=== PATIENT | male | born 1950 | race Caucasian/White ===

== ENCOUNTER 2017-10-13 10:48 | Inpatient (IN) | payer MEDICARE, OTHER ==
[~2017-10-13] VITALS: Ht 177.8 cm; Wt 91.1 kg
[2017-10-13 11:40] LABS: BASOPHILS % (AUTO) 0.3 % (0-1); EOSINOPHILS # (AUTO) 0.3 X10'3 (0-0.9); EOSINOPHILS % (AUTO) 3.4 % (0-6); HEMATOCRIT 33.5 % (42.0-52.0); HEMOGLOBIN 11.6 g/dl (14.0-17.9); LYMPHOCYTES # (AUTO) 1.6 X10'3 (1.1-4.8); LYMPHOCYTES % (AUTO) 19.2 % (21-51); MEAN CORPUSCULAR HEMOGLOBIN 29.5 PG (27.0-31.0); MEAN CORPUSCULAR HGB CONC 34.6 % (33.0-36.5); MEAN CORPUSCULAR VOLUME 85.2 FL (78-98); MEAN PLATELET VOLUME 6.8 FL (7.4-10.4); MONOCYTES % (AUTO) 11.5 % (2-12); NEUTROPHILS # (AUTO) 5.5 X10'3 (1.8-7.7); NEUTROPHILS % (AUTO) 65.6 % (42-75); PLATELET COUNT 299 X10'3 (140-440); RED BLOOD COUNT 3.94 X10'6 (4.70-6.10); RED CELL DISTRIBUTION WIDTH 14.6 % (11.5-14.5); WHITE BLOOD COUNT 8.4 X10'3 (4.5-11.0)
[2017-10-13 11:50] LABS: INR 1.1 INR; PARTIAL THROMBOPLASTIN TIME 31 SECONDS (22-32); PROTHROMBIN TIME 11.4 SECONDS (9.0-12.0)
[2017-10-13 12:01] LABS: ALANINE AMINOTRANSFERASE 27 U/L (12-78); ALBUMIN 3.2 G/DL (3.4-5.0); ALBUMIN/GLOBULIN RATIO 0.7 (1.1-1.5); ALKALINE PHOSPHATASE 70 IU/L (46-116); ANION GAP 11 (8-16); ASPARTATE AMINO TRANSFERASE 27 U/L (10-37); BILIRUBIN,TOTAL 0.4 MG/DL (0.1-1.0); BLOOD UREA NITROGEN 37 MG/DL (7-18); BUN/CREATININE RATIO 22.7 (5.4-32.0); CALCIUM 8.9 MG/DL (8.5-10.1); CHLORIDE 99 MMOL/L (99-107); CREATININE 1.63 MG/DL (0.60-1.10); GLUCOSE 117 MG/DL (70-104); POTASSIUM 4.4 MMOL/L (3.5-5.1); SODIUM 136 MMOL/L (135-145); TOTAL CARBON DIOXIDE 25.7 MMOL/L (24-32); TOTAL PROTEIN 8.1 G/DL (6.4-8.2); eGFR 43 ML/MIN
[2017-10-13] MEDS ORDERED: normal saline 1000ML IV soln IVB ONE (12:10)
[2017-10-13] MEDS ORDERED: iohexol 350MG/ML 100ml bottle IV ONE (13:26)
[2017-10-13] MEDS ORDERED: iohexol 350 MG/ML 50ML vial IV ONE (13:27)
[2017-10-13] MEDS ORDERED: acetaminophen 325mg tablet PO PRN (13:45)
[2017-10-13] MEDS ORDERED: mag hydrox/Alum hydrox/simeth 30ml oral suspension PO PRN (13:45)
[2017-10-13] MEDS ORDERED: magnesium 2GM in 50ml NS 50 ML IV PRN (13:45)
[2017-10-13] MEDS ORDERED: HYDROcodone/acetaminophen 5mg/325mg tablet PO PRN (13:45)
[2017-10-13] MEDS ORDERED: magnesium Cl slow-release 64mg tablet PO PRN (13:45)
[2017-10-13] MEDS ORDERED: potassium Cl 40MEQ/NS 500ml 500 ML IV PRN ×2 (13:45)
[2017-10-13] MEDS ORDERED: ondansetron/PF 4mg/2ml inj IV PRN (13:45)
[2017-10-13] MEDS ORDERED: magnesium 4gm in 100ml NS 100 ML IV PRN (13:45)
[2017-10-13] MEDS ORDERED: potassium Cl 20 mEq SR tablet PO PRN ×2 (13:45)
[2017-10-13] MEDS ORDERED: morphine 4 MG/ML inj SYRINge IV ONE ×2 (13:45→23:00)
[2017-10-13] MEDS ORDERED: magnesium hydroxide 30ml (MOM) UD suspension PO PRN (13:45)
[2017-10-13] MEDS: normal saline 1000ml 1,000 ML IV SCH (14:27)
[2017-10-13] MEDS ORDERED: SYN0.088T PO (14:33)
[2017-10-13] MEDS ORDERED: GABA-532 PO (14:43)
[2017-10-13] MEDS ORDERED: SIMV20TA5 PO (14:43)
[2017-10-13] MEDS ORDERED: LISI-644 PO (14:43)
[2017-10-13] MEDS ORDERED: METO25TA6 PO (14:43)
[2017-10-13] MEDS ORDERED: FURO-150 PO (14:43)
[2017-10-13] MEDS ORDERED: tramadol (14:43)
[2017-10-13] MEDS ORDERED: [UNRECOGNIZED DRUG - OTHER] (14:43)
[2017-10-13] MEDS ORDERED: HYDR-3965 PO (14:43)
[2017-10-13] MEDS ORDERED: TRAM100T34 PO (15:46)
[2017-10-13] MEDS ORDERED: METO5TAB7 PO (15:46)
[2017-10-13] MEDS ORDERED: MESSAGE TO PHARMACY PO ONE (16:15)
[2017-10-13] MEDS ORDERED: glucagon, human recombinant 1mg kit SUBCUT PRN (16:15)
[2017-10-13] MEDS ORDERED: dextrose ORAL solution 15 GM/59 ML bottle PO PRN ×2 (16:15)
[2017-10-13 16:32] LABS: HEMOGLOBIN A1C 8.2 % (4.5-6.2)
[2017-10-13] MEDS: dextrose 50%-water 50ml dispensing syringe IV PRN (18:01)
[2017-10-13] MEDS ORDERED: furosemide 10 MG/1 ML 10ml inj IV ONE (20:00)
[2017-10-13] MEDS: piperacillin/tazo 3.375gm/50ml 50 ML IV SCH (20:58)
[2017-10-13] MEDS: metoprolol tartrate 25mg tablet PO SCH (21:01)
[2017-10-13] MEDS: atorvastatin 20mg tablet PO SCH (21:02)
[2017-10-13] MEDS: insulin glargine (Lantus) pen - multi-dose SQ SCH (22:30)
[2017-10-13] MEDS ORDERED: morphine 4 MG/ML inj SYRINge IM ONE (22:30)
[2017-10-13] MEDS: gabapentin 300mg capsule PO SCH (22:38)
[2017-10-14] VITALS (22 sets, daily range): BP systolic 93–147; BP diastolic 53–73
[2017-10-14] MEDS: HYDROcodone/acetaminophen 5mg/325mg tablet PO PRN ×3 (01:39→12:55)
[2017-10-14] MEDS: piperacillin/tazo 3.375gm/50ml 50 ML IV SCH ×4 (02:43→22:58)
[2017-10-14] MEDS ORDERED: morphine 5 MG/ML injection IV PRN ×2 (03:00→05:15)
[2017-10-14] MEDS: morphine 4 MG/ML inj SYRINge IV PRN ×4 (05:37→23:56)
[2017-10-14 05:47] LABS: BASOPHILS % (AUTO) 0.3 % (0-1); EOSINOPHILS # (AUTO) 0.4 X10'3 (0-0.9); EOSINOPHILS % (AUTO) 5.1 % (0-6); HEMATOCRIT 38.1 % (42.0-52.0); LYMPHOCYTES # (AUTO) 1.9 X10'3 (1.1-4.8); LYMPHOCYTES % (AUTO) 22.4 % (21-51); MEAN CORPUSCULAR HEMOGLOBIN 29.4 PG (27.0-31.0); MEAN CORPUSCULAR HGB CONC 34.1 % (33.0-36.5); MEAN CORPUSCULAR VOLUME 86.1 FL (78-98); MEAN PLATELET VOLUME 7.1 FL (7.4-10.4); MONOCYTES # (AUTO) 0.9 X10'3 (0-0.9); MONOCYTES % (AUTO) 11.1 % (2-12); NEUTROPHILS # (AUTO) 5.1 X10'3 (1.8-7.7); NEUTROPHILS % (AUTO) 61.1 % (42-75); PLATELET COUNT 338 X10'3 (140-440); RED BLOOD COUNT 4.42 X10'6 (4.70-6.10); RED CELL DISTRIBUTION WIDTH 14.4 % (11.5-14.5); WHITE BLOOD COUNT 8.4 X10'3 (4.5-11.0)
[2017-10-14 06:12] LABS: ALANINE AMINOTRANSFERASE 27 U/L (12-78); ALBUMIN 3.3 G/DL (3.4-5.0); ALBUMIN/GLOBULIN RATIO 0.6 (1.1-1.5); ALKALINE PHOSPHATASE 64 IU/L (46-116); ANION GAP 14 (8-16); ASPARTATE AMINO TRANSFERASE 26 U/L (10-37); BILIRUBIN,TOTAL 0.5 MG/DL (0.1-1.0); BLOOD UREA NITROGEN 35 MG/DL (7-18); BUN/CREATININE RATIO 21.5 (5.4-32.0); CALCIUM 9.5 MG/DL (8.5-10.1); CHLORIDE 98 MMOL/L (99-107); CREATININE 1.63 MG/DL (0.60-1.10); GLUCOSE 101 MG/DL (70-104); MAGNESIUM 1.6 MG/DL (1.5-2.4); POTASSIUM 4.2 MMOL/L (3.5-5.1); SODIUM 136 MMOL/L (135-145); TOTAL CARBON DIOXIDE 23.9 MMOL/L (24-32); TOTAL PROTEIN 8.5 G/DL (6.4-8.2); eGFR 43 ML/MIN
[2017-10-14] MEDS: K and/or MAG REPLACEMENT MC SCH (08:00)
[2017-10-14] MEDS: lisinopril 20mg tablet PO SCH (08:23)
[2017-10-14] MEDS: metoprolol tartrate 25mg tablet PO SCH ×2 (08:26→20:41)
[2017-10-14] MEDS: gabapentin 300mg capsule PO SCH ×3 (08:26→22:58)
[2017-10-14] MEDS ORDERED: famotidine 20mg tablet PO ONE (08:35)
[2017-10-14] MEDS ORDERED: heparin 10,000 units/1 ML INJ ONE (13:20)
[2017-10-14] MEDS ORDERED: ceFAZolin 1000mg inj ONE (13:20)
[2017-10-14] MEDS ORDERED: midazolam 2 mg/2 ml injection ONE (14:30)
[2017-10-14] MEDS ORDERED: fentaNYL /PF 50mcg/ml 5ml ampule ONE (14:31)
[2017-10-14] MEDS ORDERED: LIDOcaine 1%/PF (10mg/ml) 5ml vial ONE (14:33)
[2017-10-14] MEDS ORDERED: rocuronium 10mg/ml inj IV ONE (14:33)
[2017-10-14] MEDS ORDERED: propofol inj 20 ML IV ONE (14:33)
[2017-10-14] MEDS ORDERED: sevoflurane 250ml liquid IH ONE (14:37)
[2017-10-14] MEDS ORDERED: ringers solution, lacted 1,000 ML IV ONE (15:21)
[2017-10-14] MEDS ORDERED: hydrALAZINE 20mg/ml inj. IV PRN (15:25)
[2017-10-14] MEDS ORDERED: ondansetron/PF 4mg/2ml inj IV PRN (15:25)
[2017-10-14] MEDS ORDERED: labetalol 20mg/4ml (5mg/ml) syringe IV PRN (15:25)
[2017-10-14] MEDS ORDERED: meperidine/PF 50mg/ml syringe IV ONE (15:25)
[2017-10-14] MEDS ORDERED: meperidine/PF 50mg/ml syringe IV PRN ×2 (15:25)
[2017-10-14] MEDS ORDERED: morphine 4 MG/ML inj SYRINge IV PRN ×3 (15:25→22:35)
[2017-10-14] MEDS ORDERED: heparin 1,000unit/ml 10ml vial 10 ML ONE (15:27)
[2017-10-14] MEDS ORDERED: ondansetron/PF 4mg/2ml inj ONE (15:28)
[2017-10-14] MEDS ORDERED: ePHEDrine 50MG/ML INJ. ONE (15:28)
[2017-10-14] MEDS ORDERED: neostigmine methylsulfate 1 MG/ML 10ml vial ONE (16:23)
[2017-10-14] MEDS ORDERED: glycopyrrolate 0.2mg/ml inj ONE (16:23)
[2017-10-14] MEDS: insulin glargine (Lantus) pen - multi-dose SQ SCH (22:27)
[2017-10-14] MEDS: atorvastatin 20mg tablet PO SCH (22:58)
[2017-10-14] MEDS: dextrose 50%-water 50ml dispensing syringe IV PRN ×2 (23:27→23:55)
[2017-10-15] VITALS: BP_SYST 131; BP_SYST 134; BP_DIAS 64; BP_DIAS 72
[2017-10-15] MEDS: dextrose 50%-water 50ml dispensing syringe IV PRN ×2 (00:18→00:38)
[2017-10-15] MEDS: morphine 4 MG/ML inj SYRINge IV PRN ×7 (01:12→19:38)
[2017-10-15] MEDS: piperacillin/tazo 3.375gm/50ml 50 ML IV SCH ×4 (02:33→19:38)
[2017-10-15 04:00] VITALS: BP 109/38
[2017-10-15 05:00] VITALS: BP 128/54
[2017-10-15 05:45] LABS: ALBUMIN 2.9 G/DL (3.4-5.0); ANION GAP 9 (8-16); BLOOD UREA NITROGEN 26 MG/DL (7-18); BUN/CREATININE RATIO 17.7 (5.4-32.0); CALCIUM 8.9 MG/DL (8.5-10.1); CHLORIDE 101 MMOL/L (99-107); CREATININE 1.47 MG/DL (0.60-1.10); GLUCOSE 112 MG/DL (70-104); MAGNESIUM 1.5 MG/DL (1.5-2.4); POTASSIUM 4.2 MMOL/L (3.5-5.1); SODIUM 138 MMOL/L (135-145); TOTAL CARBON DIOXIDE 27.6 MMOL/L (24-32); eGFR 48 ML/MIN
[2017-10-15] MEDS: normal saline 1000ml 1,000 ML IV SCH (06:07)
[2017-10-15] MEDS: K and/or MAG REPLACEMENT MC SCH (08:00)
[2017-10-15] MEDS: gabapentin 300mg capsule PO SCH ×3 (08:05→20:48)
[2017-10-15] MEDS: lisinopril 20mg tablet PO SCH (08:05)
[2017-10-15] MEDS: metoprolol tartrate 25mg tablet PO SCH ×2 (08:05→19:38)
[2017-10-15 09:14] VITALS: BP 123/61
[2017-10-15] MEDS: enoxaparin 40mg/0.4ml syringe SUBCUT SCH (11:25)
[2017-10-15 13:22] VITALS: BP 127/63
[2017-10-15 19:00] VITALS: BP 136/70
[2017-10-15] MEDS: lactobacillus rhamnosus 10,000 MMU CELLS/CAPSULE PO SCH (19:38)
[2017-10-15] MEDS: atorvastatin 20mg tablet PO SCH (20:48)
[2017-10-15] MEDS: insulin glargine (Lantus) pen - multi-dose SQ SCH (20:54)
[2017-10-16] VITALS: BP 149/85
[2017-10-16] MEDS: morphine 4 MG/ML inj SYRINge IV PRN (00:21)
[2017-10-16] MEDS: HYDROcodone/acetaminophen 5mg/325mg tablet PO PRN ×4 (00:36→20:02)
[2017-10-16] MEDS: temazepam 15mg capsule PO PRN ×2 (02:06→21:21)
[2017-10-16] MEDS: piperacillin/tazo 3.375gm/50ml 50 ML IV SCH ×4 (02:23→20:00)
[2017-10-16 06:24] LABS: ALBUMIN 2.7 G/DL (3.4-5.0); ANION GAP 11 (8-16); BLOOD UREA NITROGEN 25 MG/DL (7-18); BUN/CREATININE RATIO 16.7 (5.4-32.0); CHLORIDE 98 MMOL/L (99-107); GLUCOSE 142 MG/DL (70-104); MAGNESIUM 1.3 MG/DL (1.5-2.4); POTASSIUM 4.7 MMOL/L (3.5-5.1); SODIUM 135 MMOL/L (135-145); TOTAL CARBON DIOXIDE 25.8 MMOL/L (24-32); eGFR 47 ML/MIN
[2017-10-16 07:30] VITALS: BP 114/48
[2017-10-16] MEDS: K and/or MAG REPLACEMENT MC SCH (08:00)
[2017-10-16] MEDS: gabapentin 300mg capsule PO SCH ×3 (08:26→21:21)
[2017-10-16] MEDS: lactobacillus rhamnosus 10,000 MMU CELLS/CAPSULE PO SCH ×2 (08:26→20:02)
[2017-10-16] MEDS: lisinopril 20mg tablet PO SCH (08:26)
[2017-10-16] MEDS: metoprolol tartrate 25mg tablet PO SCH ×2 (08:26→20:02)
[2017-10-16] MEDS: enoxaparin 40mg/0.4ml syringe SUBCUT SCH (08:27)
[2017-10-16 11:00] VITALS: BP 118/60
[2017-10-16] MEDS ORDERED: magnesium 4gm in 100ml NS 100 ML IV ONE (15:00)
[2017-10-16] MEDS ORDERED: magnesium Cl slow-release 64mg tablet PO PRN (15:35)
[2017-10-16] MEDS ORDERED: magnesium 2GM in 50ml NS 50 ML IV PRN (15:35)
[2017-10-16] MEDS ORDERED: potassium Cl 20 mEq SR tablet PO PRN ×2 (15:35)
[2017-10-16] MEDS ORDERED: potassium Cl 40MEQ/NS 500ml 500 ML IV PRN ×2 (15:35)
[2017-10-16] MEDS ORDERED: magnesium 4gm in 100ml NS 100 ML IV PRN (15:35)
[2017-10-16 18:00] VITALS: BP 110/54
[2017-10-16] MEDS: insulin glargine (Lantus) pen - multi-dose SQ SCH (21:00)
[2017-10-16] MEDS: atorvastatin 20mg tablet PO SCH (21:21)
[2017-10-17] VITALS: BP 115/51
[2017-10-17] MEDS: HYDROcodone/acetaminophen 5mg/325mg tablet PO PRN ×5 (02:04→23:07)
[2017-10-17] MEDS: piperacillin/tazo 3.375gm/50ml 50 ML IV SCH ×4 (02:04→20:02)
[2017-10-17 07:26] VITALS: BP 130/69
[2017-10-17 07:27] LABS: ALBUMIN 2.4 G/DL (3.4-5.0); ANION GAP 10 (8-16); BLOOD UREA NITROGEN 24 MG/DL (7-18); BUN/CREATININE RATIO 18.8 (5.4-32.0); CHLORIDE 101 MMOL/L (99-107); CREATININE 1.28 MG/DL (0.60-1.10); GLUCOSE 142 MG/DL (70-104); SODIUM 135 MMOL/L (135-145); TOTAL CARBON DIOXIDE 23.7 MMOL/L (24-32); eGFR 56 ML/MIN
[2017-10-17] MEDS: lactobacillus rhamnosus 10,000 MMU CELLS/CAPSULE PO SCH ×2 (07:59→20:02)
[2017-10-17] MEDS: gabapentin 300mg capsule PO SCH ×3 (07:59→21:33)
[2017-10-17] MEDS: metoprolol tartrate 25mg tablet PO SCH ×2 (07:59→20:03)
[2017-10-17] MEDS: enoxaparin 40mg/0.4ml syringe SUBCUT SCH (07:59)
[2017-10-17] MEDS: lisinopril 20mg tablet PO SCH (07:59)
[2017-10-17] MEDS: K and/or MAG REPLACEMENT MC SCH (08:00)
[2017-10-17] MEDS: normal saline 1000ml 1,000 ML IV SCH (08:04)
[2017-10-17 11:00] VITALS: BP 123/60
[2017-10-17 13:14] LABS: HEPATITIS C ANTIBODY <0.1 s/co ratio (0.0-0.9)
[2017-10-17 19:30] VITALS: BP 139/61
[2017-10-17] MEDS: insulin glargine (Lantus) pen - multi-dose SQ SCH (21:00)
[2017-10-17] MEDS: atorvastatin 20mg tablet PO SCH (21:33)
[2017-10-17] MEDS: temazepam 15mg capsule PO PRN (23:06)
[2017-10-18] VITALS: BP 139/61
[2017-10-18] MEDS: piperacillin/tazo 3.375gm/50ml 50 ML IV SCH ×4 (01:58→19:58)
[2017-10-18] MEDS: HYDROcodone/acetaminophen 5mg/325mg tablet PO PRN ×2 (04:28→08:29)
[2017-10-18 05:51] LABS: ALBUMIN 2.4 G/DL (3.4-5.0); ANION GAP 12 (8-16); BLOOD UREA NITROGEN 24 MG/DL (7-18); BUN/CREATININE RATIO 19.4 (5.4-32.0); CALCIUM 9.1 MG/DL (8.5-10.1); CHLORIDE 102 MMOL/L (99-107); CREATININE 1.24 MG/DL (0.60-1.10); GLUCOSE 145 MG/DL (70-104); MAGNESIUM 1.7 MG/DL (1.5-2.4); POTASSIUM 3.7 MMOL/L (3.5-5.1); SODIUM 138 MMOL/L (135-145); TOTAL CARBON DIOXIDE 24.1 MMOL/L (24-32); eGFR 58 ML/MIN
[2017-10-18 07:00] VITALS: BP 120/61
[2017-10-18] MEDS: K and/or MAG REPLACEMENT MC SCH (08:00)
[2017-10-18] MEDS: metoprolol tartrate 25mg tablet PO SCH ×2 (08:24→19:57)
[2017-10-18] MEDS: lisinopril 20mg tablet PO SCH (08:24)
[2017-10-18] MEDS: gabapentin 300mg capsule PO SCH ×3 (08:24→19:57)
[2017-10-18] MEDS: lactobacillus rhamnosus 10,000 MMU CELLS/CAPSULE PO SCH ×2 (08:24→19:57)
[2017-10-18] MEDS: enoxaparin 40mg/0.4ml syringe SUBCUT SCH (08:25)
[2017-10-18 11:00] VITALS: BP 123/67
[2017-10-18 12:29] LABS: BASOPHILS % (AUTO) 0.1 % (0-1); EOSINOPHILS # (AUTO) 0.3 X10'3 (0-0.9); EOSINOPHILS % (AUTO) 3.5 % (0-6); HEMATOCRIT 35.4 % (42.0-52.0); HEMOGLOBIN 11.9 g/dl (14.0-17.9); LYMPHOCYTES # (AUTO) 1.2 X10'3 (1.1-4.8); LYMPHOCYTES % (AUTO) 12.4 % (21-51); MEAN CORPUSCULAR HEMOGLOBIN 29.2 PG (27.0-31.0); MEAN CORPUSCULAR HGB CONC 33.6 % (33.0-36.5); MEAN CORPUSCULAR VOLUME 86.8 FL (78-98); MEAN PLATELET VOLUME 7.9 FL (7.4-10.4); MONOCYTES # (AUTO) 1.1 X10'3 (0-0.9); MONOCYTES % (AUTO) 11.9 % (2-12); NEUTROPHILS # (AUTO) 6.8 X10'3 (1.8-7.7); NEUTROPHILS % (AUTO) 72.1 % (42-75); PLATELET COUNT 222 X10'3 (140-440); RED BLOOD COUNT 4.08 X10'6 (4.70-6.10); RED CELL DISTRIBUTION WIDTH 14.3 % (11.5-14.5); WHITE BLOOD COUNT 9.5 X10'3 (4.5-11.0)
[2017-10-18 14:38] LABS: ALANINE AMINOTRANSFERASE 38 U/L (12-78); ALBUMIN 2.4 G/DL (3.4-5.0); ALBUMIN/GLOBULIN RATIO 0.5 (1.1-1.5); ALKALINE PHOSPHATASE 110 IU/L (46-116); ANION GAP 8 (8-16); ASPARTATE AMINO TRANSFERASE 40 U/L (10-37); BILIRUBIN,TOTAL 0.3 MG/DL (0.1-1.0); BLOOD UREA NITROGEN 21 MG/DL (7-18); BUN/CREATININE RATIO 16.9 (5.4-32.0); CALCIUM 9.2 MG/DL (8.5-10.1); CHLORIDE 101 MMOL/L (99-107); CREATININE 1.24 MG/DL (0.60-1.10); GLUCOSE 166 MG/DL (70-104); POTASSIUM 3.9 MMOL/L (3.5-5.1); SODIUM 137 MMOL/L (135-145); TOTAL CARBON DIOXIDE 27.7 MMOL/L (24-32); TOTAL PROTEIN 7.7 G/DL (6.4-8.2); eGFR 58 ML/MIN
[2017-10-18] MEDS: HYDROcodone/acetaminophen 10/325mg tab PO PRN ×2 (15:55→19:58)
[2017-10-18 18:00] VITALS: BP 146/79
[2017-10-18] MEDS: atorvastatin 20mg tablet PO SCH (19:57)
[2017-10-18] MEDS: insulin glargine (Lantus) pen - multi-dose SQ SCH (21:00)
[2017-10-19] VITALS: BP 130/71
[2017-10-19] MEDS: temazepam 15mg capsule PO PRN (00:08)
[2017-10-19] MEDS: HYDROcodone/acetaminophen 10/325mg tab PO PRN ×3 (00:08→15:14)
[2017-10-19] MEDS: piperacillin/tazo 3.375gm/50ml 50 ML IV SCH ×3 (02:51→13:36)
[2017-10-19 07:00] VITALS: BP_SYST 116; BP_SYST 139; BP_DIAS 69; BP_DIAS 80
[2017-10-19] MEDS: metoprolol tartrate 25mg tablet PO SCH (07:18)
[2017-10-19] MEDS: lactobacillus rhamnosus 10,000 MMU CELLS/CAPSULE PO SCH (07:18)
[2017-10-19] MEDS: gabapentin 300mg capsule PO SCH ×2 (07:19→12:48)
[2017-10-19] MEDS: lisinopril 20mg tablet PO SCH (07:19)
[2017-10-19] MEDS: enoxaparin 40mg/0.4ml syringe SUBCUT SCH (07:21)
[2017-10-19] MEDS: K and/or MAG REPLACEMENT MC SCH (07:30)
[2017-10-19 08:00] VITALS: BP 108/60
[2017-10-19 10:20] VITALS: BP 119/59
[2017-10-19 11:00] VITALS: BP 119/59
[2017-10-19] MEDS: morphine 4 MG/ML inj SYRINge IV PRN (11:35)
[2017-10-19] MEDS: normal saline 1000ml 1,000 ML IV SCH (13:43)
== END 2017-10-19 17:23 | DRG 253 ==
LOC: ER 10:49 → ED HOLD 13:43 → SUR 3N 22:50 → CMPBEDREQ 23:00 → PACU 10-14 14:14 → CICU 2S 10-14 16:17 → PAS IN 10-14 17:00 → SUR 3N 10-14 19:02
PROVIDERS: ADMIT Internal Medicine; ATTEND Internal Medicine
PROC: B4201ZZ Computerized Tomography (CT Scan) of Abdominal Aorta using Low Osmolar Contrast (ICD-10-PCS; 2017-10-13)
PROC: B42H1ZZ Computerized Tomography (CT Scan) of Bilateral Lower Extremity Arteries using Low Osmolar Contrast (ICD-10-PCS; 2017-10-13)
PROC: 041K0JL Bypass Right Femoral Artery to Popliteal Artery with Synthetic Substitute, Open Approach (ICD-10-PCS; principal; 2017-10-14 14:37)
DX: E11.52 Type 2 diabetes mellitus with diabetic peripheral angiopathy with gangrene (principal); E11.22 Type 2 diabetes mellitus with diabetic chronic kidney disease; E11.42 Type 2 diabetes mellitus with diabetic polyneuropathy; I70.268 Atherosclerosis of native arteries of extremities with gangrene, other extremity; L03.115 Cellulitis of right lower limb; E66.01 Morbid (severe) obesity due to excess calories; I74.5 Embolism and thrombosis of iliac artery; E03.9 Hypothyroidism, unspecified; K74.60 Unspecified cirrhosis of liver; E11.621 Type 2 diabetes mellitus with foot ulcer; E78.5 Hyperlipidemia, unspecified; I12.9 Hypertensive chronic kidney disease with stage 1 through stage 4 chronic kidney disease, or unspecified chronic kidney disease; L97.519 Non-pressure chronic ulcer of other part of right foot with unspecified severity; N18.9 Chronic kidney disease, unspecified; Z79.4 Long term (current) use of insulin; Z87.891 Personal history of nicotine dependence; Z68.28 Body mass index [BMI] 28.0-28.9, adult
CPT/HCPCS: 36415; 71045; 75635; 80048; 80053; 82947; 82948; 83036; 83735; 85025; 85610; 85730; 86706; 86803; 86885; 86900; 86901; 86920; 87070; 93306; 93922; 93925; 97110; 97116; 97161; 97530; 99285; A4649; A6222; A6257; A6258; A6449; A7000; C1758; C1768; J0690; J1644; J1650; J1815; J1940; J2001; J2175; J2250; J2270; J2405; J2543; J2704; J2710; J3010; J3475; J3490; J7030; J7120; Q9967

== ENCOUNTER 2017-12-23 11:25 | Outpatient (CLI) | payer MEDICARE, OTHER ==
[~2017-12-23 11:25] MED LIST: ACET-2765 PO; ASCO500C15 PO; ATOR20TA66 PO; BISA10SU60 RC; FURO-150 PO; GABA-532 PO; GABA600T2 PO; GLUC1KIT IM; INSU100I31 SQ; LACTC PO; LISI-644 PO; METO25TA6 PO; METO5TAB7 PO; MULT-645 PO; NA P133E4 RC; ONDA4TAB6 PO; SODI1TAB2 PO; SYN0.088T PO; [UNRECOGNIZED DRUG - CODE] PO
[2017-12-23 12:02] VITALS: BP 112/76
[2017-12-23] MEDS ORDERED: LIDOcaine 2% 5ml jelly ONE (12:22)
== END 2017-12-23 12:56 | disposition home or self-care (01) ==
LOC: ORTHO 11:25
PROVIDERS: ATTEND Nurse Practitioner Family
DX: Z47.81 Encounter for orthopedic aftercare following surgical amputation (principal); E11.52 Type 2 diabetes mellitus with diabetic peripheral angiopathy with gangrene; Z89.511 Acquired absence of right leg below knee; G54.6 Phantom limb syndrome with pain
CPT/HCPCS: 99214; A6449

== ENCOUNTER 2018-01-27 08:02 | Inpatient (IN) | payer MEDICARE, OTHER ==
[2018-01-27] VITALS (18 sets, daily range): BP systolic 61–146; BP diastolic 40–92
[~2018-01-27] VITALS: Ht 172.7 cm; Wt 106.0 kg
[~2018-01-27 08:02] MED LIST changes: +AMIN30LI2 PO; +Cefazolin 2GM/50ML dext iso,osmotic IVPB IV ONE; +DICY10CA88 PO; +DOCUMENT DATE & TIME OF BETA-BLOCKER PO ONE; +DULO60CA45 PO; +HYDR-565 PO; +MAGN400O6 PO; -ONDA4TAB6 PO; +famotidine 20mg tablet PO ONE; +metoprolol tartrate 25mg tablet PO STA; +ringers solution, lacted 1,000 ML IV SCH; +vancomycin inj 1,500 MG in normal saline 300ml IV soln IV ONE
[2018-01-27] MEDS ORDERED: LIDOcaine 2% (20mg/ml) 5ml vial ONE (08:19)
[2018-01-27] MEDS ORDERED: propofol inj 20 ML IV ONE (08:19)
[2018-01-27] MEDS ORDERED: sevoflurane 250ml liquid IH ONE (08:36)
[2018-01-27] MEDS ORDERED: ringers solution, lacted 1,000 ML IV SCH (08:38)
[2018-01-27] MEDS ORDERED: enalaprilat dihydrate 2.5mg/2ml vial IV PRN (08:40)
[2018-01-27] MEDS ORDERED: fentaNYL/PF 50MCG/1 ML 2ML syringe IV PRN (08:40)
[2018-01-27] MEDS ORDERED: morphine 4 MG/ML inj SYRINge IV PRN ×2 (08:40)
[2018-01-27] MEDS ORDERED: hydrALAZINE 20mg/ml inj. IV PRN (08:40)
[2018-01-27] MEDS ORDERED: ondansetron/PF 4mg/2ml inj IV PRN ×2 (08:40→10:00)
[2018-01-27] MEDS ORDERED: midazolam 2 mg/2 ml injection ONE (08:42)
[2018-01-27] MEDS ORDERED: fentaNYL/PF 50MCG/1 ML 2ML syringe ONE ×2 (08:42→09:31)
[2018-01-27 08:44] LABS: BASOPHILS % (AUTO) 0.3 % (0-1); EOSINOPHILS # (AUTO) 0.3 X10'3 (0-0.9); EOSINOPHILS % (AUTO) 2.9 % (0-6); LYMPHOCYTES # (AUTO) 2.4 X10'3 (1.1-4.8); LYMPHOCYTES % (AUTO) 20.9 % (21-51); MEAN CORPUSCULAR HEMOGLOBIN 28.7 PG (27.0-31.0); MEAN CORPUSCULAR HGB CONC 33.4 % (33.0-36.5); MEAN CORPUSCULAR VOLUME 85.9 FL (78-98); MEAN PLATELET VOLUME 6.7 FL (7.4-10.4); MONOCYTES # (AUTO) 0.9 X10'3 (0-0.9); NEUTROPHILS # (AUTO) 7.9 X10'3 (1.8-7.7); NEUTROPHILS % (AUTO) 67.9 % (42-75); PLATELET COUNT 345 X10'3 (140-440); RED BLOOD COUNT 4.53 X10'6 (4.70-6.10); RED CELL DISTRIBUTION WIDTH 16.6 % (11.5-14.5); WHITE BLOOD COUNT 11.6 X10'3 (4.5-11.0)
[2018-01-27 08:46] LABS: ISTAT CREATININE 0.9 mg/dL (0.8-1.3); ISTAT HGB 14.6 g/dl (14.0-18.0); ISTAT IONIZED CALCIUM 1.23 mmol/L (1.03-1.32); ISTAT K 4.9 mmol/L (3.5-5.1); POC BUN/CREATININE RATIO 22.2 (5.4-32.0)
[2018-01-27 08:53] LABS: PARTIAL THROMBOPLASTIN TIME 29 SECONDS (22-32); PROTHROMBIN TIME 10.4 SECONDS (9.0-12.0)
[2018-01-27 08:57] LABS: ALANINE AMINOTRANSFERASE 44 U/L (12-78); ALBUMIN 3.3 G/DL (3.4-5.0); ALBUMIN/GLOBULIN RATIO 0.6 (1.1-1.5); ALKALINE PHOSPHATASE 126 IU/L (46-116); ANION GAP 10 (8-16); ASPARTATE AMINO TRANSFERASE 30 U/L (10-37); BILIRUBIN,TOTAL 0.3 MG/DL (0.1-1.0); BLOOD UREA NITROGEN 18 MG/DL (7-18); BUN/CREATININE RATIO 15.9 (5.4-32.0); CALCIUM 9.5 MG/DL (8.5-10.1); CHLORIDE 98 MMOL/L (99-107); CREATININE 1.13 MG/DL (0.60-1.10); GLUCOSE 106 MG/DL (70-104); POTASSIUM 4.7 MMOL/L (3.5-5.1); SODIUM 133 MMOL/L (135-145); TOTAL CARBON DIOXIDE 25.5 MMOL/L (24-32); TOTAL PROTEIN 9.2 G/DL (6.4-8.2); eGFR 65 ML/MIN
[2018-01-27] MEDS ORDERED: ceFAZolin 1000mg inj ONE (09:06)
[2018-01-27] MEDS ORDERED: ceFAZolin 1000mg inj IR ONE (09:22)
[2018-01-27] MEDS ORDERED: vancomycin 1,000mg inj ONE (09:36)
[2018-01-27] MEDS ORDERED: bisacodyl 10mg suppository rectal RC PRN ×2 (10:00→11:15)
[2018-01-27] MEDS ORDERED: magnesium hydroxide 30ml (MOM) UD suspension PO PRN (10:00)
[2018-01-27] MEDS ORDERED: acetaminophen 325mg tablet PO PRN (10:00)
[2018-01-27] MEDS ORDERED: HYDROmorphone inj. 0.5 MG/0.5 ML DISP.SYRIN IV PRN ×2 (10:00)
[2018-01-27] MEDS ORDERED: oxyCODONE IR 5mg (immed. release) tablet PO PRN (10:00)
[2018-01-27] MEDS ORDERED: diphenhydrAMINE 25mg capsule PO PRN ×2 (10:00)
[2018-01-27] MEDS ORDERED: ePHEDrine 50MG/ML INJ. ONE (10:05)
[2018-01-27] MEDS ORDERED: albumin (Human) 5% 250ml 250 ML IV ONE (10:17)
[2018-01-27] MEDS ORDERED: albumin (Human) 5% 250 ML IV solution IV STA (10:17)
[2018-01-27] MEDS: fentaNYL/PF 50MCG/1 ML 2ML syringe IV PRN ×2 (10:41→10:56)
[2018-01-27] MEDS ORDERED: dicyclomine 10 MG capsule PO PRN (11:15)
[2018-01-27] MEDS ORDERED: mag hydrox/Alum hydrox/simeth 30ml oral suspension PO PRN (11:15)
[2018-01-27] MEDS ORDERED: non-formulary drug (Na Phos,M-B/Na Phos,Di-Ba* (Fleet's Enema*) 1 BOTTLE) RC PRN (11:15)
[2018-01-27] MEDS ORDERED: GLUCAGON HUMAN RECOMBINANT 1 MG IM SCH (11:15)
[2018-01-27] MEDS ORDERED: glucagon, human recombinant 1mg kit SUBCUT PRN (11:30)
[2018-01-27] MEDS: oxyCODONE IR 5mg (immed. release) tablet PO PRN ×3 (11:33→19:55)
[2018-01-27] MEDS: potassium cl 20mEq in 1/2 NS 1,000 ML IV SCH ×2 (11:44→16:59)
[2018-01-27] MEDS ORDERED: HYDROmorphone 1 mg/ml syringe IV PRN (11:49)
[2018-01-27] MEDS: HYDROmorphone 1 mg/ml syringe IV PRN ×3 (12:10→21:06)
[2018-01-27] MEDS: acetaminophen 325mg tablet PO SCH ×2 (14:34→19:54)
[2018-01-27] MEDS: gabapentin 300mg capsule PO SCH ×2 (14:34→21:05)
[2018-01-27] MEDS: ceFAZolin 1GM/D5W- ADD-VANTAGE 50 ML IV SCH (15:37)
[2018-01-27] MEDS: furosemide 20MG tablet PO SCH (19:53)
[2018-01-27] MEDS: lactobacillus rhamnosus 10,000 MMU CELLS/CAPSULE PO SCH (19:53)
[2018-01-27] MEDS: metoprolol tartrate 25mg tablet PO SCH (19:53)
[2018-01-27] MEDS: ascorbic acid 500mg tablet PO SCH (19:53)
[2018-01-27] MEDS: sodium chloride 1gm tablet PO SCH (19:53)
[2018-01-27] MEDS ORDERED: vancomycin/NS 1 GM ADD-VANTAGE 250 ML IV SCH (20:00)
[2018-01-27] MEDS ORDERED: AMINO ACIDS PO SCH (20:00)
[2018-01-27] MEDS ORDERED: PROTEIN HYDROLYS PO SCH (20:00)
[2018-01-27] MEDS: insulin glargine (Lantus) pen - multi-dose SQ SCH (21:00)
[2018-01-27] MEDS: sennosides 8.6mg tablet PO SCH ×2 (21:00→21:05)
[2018-01-27] MEDS: atorvastatin 20mg tablet PO SCH (21:05)
[2018-01-28] MEDS: ceFAZolin 1GM/D5W- ADD-VANTAGE 50 ML IV SCH (00:05)
[2018-01-28] MEDS: acetaminophen 325mg tablet PO SCH ×4 (00:08→20:55)
[2018-01-28] MEDS: oxyCODONE IR 5mg (immed. release) tablet PO PRN ×6 (00:09→20:55)
[2018-01-28] MEDS: potassium cl 20mEq in 1/2 NS 1,000 ML IV SCH ×3 (01:56→20:54)
[2018-01-28 02:00] VITALS: BP 114/60
[2018-01-28 06:00] VITALS: BP 117/63
[2018-01-28 06:07] LABS: BASOPHILS % (AUTO) 0.3 % (0-1); EOSINOPHILS # (AUTO) 0.5 X10'3 (0-0.9); EOSINOPHILS % (AUTO) 5.7 % (0-6); HEMATOCRIT 25.5 % (42.0-52.0); HEMOGLOBIN 8.5 g/dl (14.0-17.9); LYMPHOCYTES # (AUTO) 1.4 X10'3 (1.1-4.8); LYMPHOCYTES % (AUTO) 15.4 % (21-51); MEAN CORPUSCULAR HEMOGLOBIN 28.4 PG (27.0-31.0); MEAN CORPUSCULAR HGB CONC 33.2 % (33.0-36.5); MEAN CORPUSCULAR VOLUME 85.6 FL (78-98); MEAN PLATELET VOLUME 6.9 FL (7.4-10.4); MONOCYTES # (AUTO) 0.7 X10'3 (0-0.9); NEUTROPHILS # (AUTO) 6.3 X10'3 (1.8-7.7); NEUTROPHILS % (AUTO) 70.6 % (42-75); PLATELET COUNT 231 X10'3 (140-440); RED BLOOD COUNT 2.98 X10'6 (4.70-6.10); RED CELL DISTRIBUTION WIDTH 16.4 % (11.5-14.5); WHITE BLOOD COUNT 8.9 X10'3 (4.5-11.0)
[2018-01-28 06:15] LABS: ANION GAP 8 (8-16); CHLORIDE 99 MMOL/L (99-107); POTASSIUM 4.7 MMOL/L (3.5-5.1); SODIUM 130 MMOL/L (135-145); TOTAL CARBON DIOXIDE 22.7 MMOL/L (24-32)
[2018-01-28] MEDS: duloxetine 30mg CAPSULE.DR PO SCH (07:37)
[2018-01-28] MEDS: multivitamins, therapeutics tablet PO SCH (07:40)
[2018-01-28] MEDS: levoTHYROXINE 100mcg tablet PO SCH (07:40)
[2018-01-28] MEDS: ascorbic acid 500mg tablet PO SCH ×2 (07:40→20:54)
[2018-01-28] MEDS: sodium chloride 1gm tablet PO SCH ×2 (07:41→20:55)
[2018-01-28] MEDS: furosemide 20MG tablet PO SCH ×2 (07:41→20:54)
[2018-01-28] MEDS: metoprolol tartrate 25mg tablet PO SCH ×2 (07:41→20:55)
[2018-01-28] MEDS: gabapentin 300mg capsule PO SCH ×3 (07:41→20:55)
[2018-01-28] MEDS: lactobacillus rhamnosus 10,000 MMU CELLS/CAPSULE PO SCH ×2 (07:42→20:54)
[2018-01-28] MEDS: lisinopril 20mg tablet PO SCH (07:43)
[2018-01-28] MEDS: metolazone 2.5mg tablet PO SCH (07:44)
[2018-01-28] MEDS ORDERED: levoTHYROXINE 88mcg tablet PO SCH (08:00)
[2018-01-28 10:00] VITALS: BP 106/49
[2018-01-28] MEDS ORDERED: NUT.TX.GLUC.INTOLER,LAC-FR,REG (BOOST GLUCOSE CONTROL) 237 ML PO SCH (13:00)
[2018-01-28 14:00] VITALS: BP 106/56
[2018-01-28 18:00] VITALS: BP 121/69
[2018-01-28] MEDS: HYDROmorphone 1 mg/ml syringe IV PRN (18:51)
[2018-01-28] MEDS: atorvastatin 20mg tablet PO SCH (20:55)
[2018-01-28] MEDS: sennosides 8.6mg tablet PO SCH (20:55)
[2018-01-28] MEDS: insulin glargine (Lantus) pen - multi-dose SQ SCH (21:00)
[2018-01-28 22:00] VITALS: BP 117/62
[2018-01-29] MEDS: acetaminophen 325mg tablet PO SCH ×2 (01:04→08:07)
[2018-01-29] MEDS: oxyCODONE IR 5mg (immed. release) tablet PO PRN ×6 (01:04→23:35)
[2018-01-29] MEDS: potassium cl 20mEq in 1/2 NS 1,000 ML IV SCH (01:56)
[2018-01-29 05:16] LABS: BASOPHILS % (AUTO) 0.1 % (0-1); EOSINOPHILS # (AUTO) 0.5 X10'3 (0-0.9); EOSINOPHILS % (AUTO) 6.6 % (0-6); HEMATOCRIT 25.5 % (42.0-52.0); HEMOGLOBIN 8.3 g/dl (14.0-17.9); LYMPHOCYTES # (AUTO) 1.9 X10'3 (1.1-4.8); LYMPHOCYTES % (AUTO) 24.4 % (21-51); MEAN CORPUSCULAR HGB CONC 32.7 % (33.0-36.5); MEAN CORPUSCULAR VOLUME 85.5 FL (78-98); MEAN PLATELET VOLUME 7.1 FL (7.4-10.4); MONOCYTES # (AUTO) 0.7 X10'3 (0-0.9); MONOCYTES % (AUTO) 8.9 % (2-12); NEUTROPHILS # (AUTO) 4.7 X10'3 (1.8-7.7); PLATELET COUNT 238 X10'3 (140-440); RED BLOOD COUNT 2.98 X10'6 (4.70-6.10); RED CELL DISTRIBUTION WIDTH 16.3 % (11.5-14.5); WHITE BLOOD COUNT 7.8 X10'3 (4.5-11.0)
[2018-01-29 06:00] VITALS: BP 111/55
[2018-01-29] MEDS: metoprolol tartrate 25mg tablet PO SCH ×2 (08:03→20:53)
[2018-01-29] MEDS: lisinopril 20mg tablet PO SCH (08:05)
[2018-01-29] MEDS: sodium chloride 1gm tablet PO SCH ×2 (08:06→20:53)
[2018-01-29] MEDS: multivitamins, therapeutics tablet PO SCH (08:06)
[2018-01-29] MEDS: gabapentin 300mg capsule PO SCH ×3 (08:06→20:54)
[2018-01-29] MEDS: duloxetine 30mg CAPSULE.DR PO SCH (08:06)
[2018-01-29] MEDS: furosemide 20MG tablet PO SCH ×2 (08:06→20:53)
[2018-01-29] MEDS: lactobacillus rhamnosus 10,000 MMU CELLS/CAPSULE PO SCH ×2 (08:06→20:53)
[2018-01-29] MEDS: levoTHYROXINE 100mcg tablet PO SCH (08:06)
[2018-01-29] MEDS: metolazone 2.5mg tablet PO SCH (08:07)
[2018-01-29] MEDS: carbamide peroxide 15ml bottle EACH EAR SCH ×2 (08:08→20:53)
[2018-01-29] MEDS: ascorbic acid 500mg tablet PO SCH ×2 (08:11→20:53)
[2018-01-29] MEDS ORDERED: acetaminophen 325mg tablet PO PRN (10:00)
[2018-01-29] MEDS: HYDROmorphone 1 mg/ml syringe IV PRN (10:52)
[2018-01-29 15:30] VITALS: BP 129/65
[2018-01-29] MEDS: atorvastatin 20mg tablet PO SCH (20:54)
[2018-01-29] MEDS: sennosides 8.6mg tablet PO SCH (20:54)
[2018-01-29] MEDS: insulin glargine (Lantus) pen - multi-dose SQ SCH (21:00)
[2018-01-29 22:00] VITALS: BP 107/73
[2018-01-30 02:00] VITALS: BP 124/67
[2018-01-30 06:00] VITALS: BP 113/64
[2018-01-30] MEDS: HYDROmorphone 1 mg/ml syringe IV PRN (06:17)
[2018-01-30 06:28] LABS: BASOPHILS % (AUTO) 0.3 % (0-1); EOSINOPHILS # (AUTO) 0.4 X10'3 (0-0.9); EOSINOPHILS % (AUTO) 4.7 % (0-6); HEMATOCRIT 25.8 % (42.0-52.0); HEMOGLOBIN 8.6 g/dl (14.0-17.9); LYMPHOCYTES # (AUTO) 1.6 X10'3 (1.1-4.8); LYMPHOCYTES % (AUTO) 19.4 % (21-51); MEAN CORPUSCULAR HEMOGLOBIN 28.2 PG (27.0-31.0); MEAN CORPUSCULAR HGB CONC 33.4 % (33.0-36.5); MEAN CORPUSCULAR VOLUME 84.5 FL (78-98); MEAN PLATELET VOLUME 7.2 FL (7.4-10.4); MONOCYTES # (AUTO) 0.8 X10'3 (0-0.9); MONOCYTES % (AUTO) 9.4 % (2-12); NEUTROPHILS # (AUTO) 5.3 X10'3 (1.8-7.7); NEUTROPHILS % (AUTO) 66.2 % (42-75); PLATELET COUNT 260 X10'3 (140-440); RED BLOOD COUNT 3.05 X10'6 (4.70-6.10); RED CELL DISTRIBUTION WIDTH 16.3 % (11.5-14.5); WHITE BLOOD COUNT 8.1 X10'3 (4.5-11.0)
[2018-01-30] MEDS: metolazone 2.5mg tablet PO SCH (07:34)
[2018-01-30] MEDS: gabapentin 300mg capsule PO SCH ×3 (07:34→20:13)
[2018-01-30] MEDS: lactobacillus rhamnosus 10,000 MMU CELLS/CAPSULE PO SCH ×2 (07:34→20:12)
[2018-01-30] MEDS: furosemide 20MG tablet PO SCH ×2 (07:34→20:13)
[2018-01-30] MEDS: metoprolol tartrate 25mg tablet PO SCH ×2 (07:34→20:13)
[2018-01-30] MEDS: multivitamins, therapeutics tablet PO SCH (07:34)
[2018-01-30] MEDS: sodium chloride 1gm tablet PO SCH ×2 (07:34→20:13)
[2018-01-30] MEDS: duloxetine 30mg CAPSULE.DR PO SCH (07:34)
[2018-01-30] MEDS: carbamide peroxide 15ml bottle EACH EAR SCH ×2 (07:35→20:14)
[2018-01-30] MEDS: lisinopril 20mg tablet PO SCH (07:35)
[2018-01-30] MEDS: ascorbic acid 500mg tablet PO SCH ×2 (07:35→20:13)
[2018-01-30] MEDS: levoTHYROXINE 100mcg tablet PO SCH (07:35)
[2018-01-30] MEDS: oxyCODONE IR 5mg (immed. release) tablet PO PRN ×4 (08:20→20:13)
[2018-01-30 10:00] VITALS: BP 128/56
[2018-01-30 18:00] VITALS: BP 134/67
[2018-01-30] MEDS: atorvastatin 20mg tablet PO SCH (20:13)
[2018-01-30] MEDS: sennosides 8.6mg tablet PO SCH (20:15)
[2018-01-30] MEDS: insulin glargine (Lantus) pen - multi-dose SQ SCH (21:00)
[2018-01-30 22:00] VITALS: BP 130/69
[2018-01-31] MEDS: oxyCODONE IR 5mg (immed. release) tablet PO PRN ×5 (03:05→21:38)
[2018-01-31 06:35] VITALS: BP 135/68
[2018-01-31] MEDS: metoprolol tartrate 25mg tablet PO SCH ×2 (07:39→20:16)
[2018-01-31] MEDS: ascorbic acid 500mg tablet PO SCH ×2 (07:39→20:16)
[2018-01-31] MEDS: multivitamins, therapeutics tablet PO SCH (07:39)
[2018-01-31] MEDS: sodium chloride 1gm tablet PO SCH ×2 (07:39→20:16)
[2018-01-31] MEDS: levoTHYROXINE 100mcg tablet PO SCH (07:39)
[2018-01-31] MEDS: lactobacillus rhamnosus 10,000 MMU CELLS/CAPSULE PO SCH ×2 (07:39→20:16)
[2018-01-31] MEDS: metolazone 2.5mg tablet PO SCH (07:39)
[2018-01-31] MEDS: duloxetine 30mg CAPSULE.DR PO SCH (07:39)
[2018-01-31] MEDS: furosemide 20MG tablet PO SCH ×2 (07:40→20:16)
[2018-01-31] MEDS: lisinopril 20mg tablet PO SCH (07:40)
[2018-01-31] MEDS: carbamide peroxide 15ml bottle EACH EAR SCH ×2 (07:42→20:00)
[2018-01-31] MEDS: gabapentin 300mg capsule PO SCH ×3 (07:43→20:16)
[2018-01-31 18:00] VITALS: BP 122/68
[2018-01-31] MEDS: atorvastatin 20mg tablet PO SCH (20:17)
[2018-01-31] MEDS: sennosides 8.6mg tablet PO SCH (20:20)
[2018-01-31] MEDS: insulin glargine (Lantus) pen - multi-dose SQ SCH (21:00)
[2018-01-31 22:00] VITALS: BP 138/76
[2018-02-01] VITALS (17 sets, daily range): BP systolic 112–151; BP diastolic 65–81
[2018-02-01] MEDS: oxyCODONE IR 5mg (immed. release) tablet PO PRN ×3 (02:29→19:43)
[2018-02-01 07:35] LABS: BASOPHILS % (AUTO) 0.1 % (0-1); EOSINOPHILS # (AUTO) 0.3 X10'3 (0-0.9); EOSINOPHILS % (AUTO) 4.4 % (0-6); LYMPHOCYTES # (AUTO) 1.8 X10'3 (1.1-4.8); LYMPHOCYTES % (AUTO) 26.2 % (21-51); MEAN CORPUSCULAR HEMOGLOBIN 28.2 PG (27.0-31.0); MEAN CORPUSCULAR HGB CONC 33.2 % (33.0-36.5); MEAN CORPUSCULAR VOLUME 85.1 FL (78-98); MEAN PLATELET VOLUME 6.9 FL (7.4-10.4); MONOCYTES # (AUTO) 0.8 X10'3 (0-0.9); MONOCYTES % (AUTO) 11.2 % (2-12); NEUTROPHILS % (AUTO) 58.1 % (42-75); PRE OP HEMATOCRIT 26.4 % (42.0-52.0); PRE OP PLATELET COUNT 306 X10'3 (140-440); RED CELL DISTRIBUTION WIDTH 16.5 % (11.5-14.5)
[2018-02-01 07:38] LABS: PRE OP HEMOGLOBIN 8.8 g/dL (14.0-17.9)
[2018-02-01 07:51] LABS: ALANINE AMINOTRANSFERASE 28 U/L (12-78); ALBUMIN 2.8 G/DL (3.4-5.0); ALBUMIN/GLOBULIN RATIO 0.6 (1.1-1.5); ALKALINE PHOSPHATASE 85 IU/L (46-116); ANION GAP 5 (8-16); ASPARTATE AMINO TRANSFERASE 23 U/L (10-37); BILIRUBIN,TOTAL 0.2 MG/DL (0.1-1.0); BLOOD UREA NITROGEN 20 MG/DL (7-18); BUN/CREATININE RATIO 17.2 (5.4-32.0); CALCIUM 8.8 MG/DL (8.5-10.1); CHLORIDE 99 MMOL/L (99-107); CREATININE 1.16 MG/DL (0.60-1.10); GLUCOSE 116 MG/DL (70-104); POTASSIUM 3.8 MMOL/L (3.5-5.1); SODIUM 130 MMOL/L (135-145); TOTAL CARBON DIOXIDE 26.4 MMOL/L (24-32); TOTAL PROTEIN 7.3 G/DL (6.4-8.2); eGFR 63 ML/MIN
[2018-02-01] MEDS: metoprolol tartrate 25mg tablet PO SCH ×2 (07:51→19:42)
[2018-02-01] MEDS: lisinopril 20mg tablet PO SCH (07:51)
[2018-02-01] MEDS: gabapentin 300mg capsule PO SCH ×3 (07:51→21:00)
[2018-02-01] MEDS: levoTHYROXINE 100mcg tablet PO SCH (07:51)
[2018-02-01] MEDS: lactobacillus rhamnosus 10,000 MMU CELLS/CAPSULE PO SCH ×2 (07:52→19:42)
[2018-02-01] MEDS: duloxetine 30mg CAPSULE.DR PO SCH (07:52)
[2018-02-01] MEDS: multivitamins, therapeutics tablet PO SCH (07:52)
[2018-02-01] MEDS: furosemide 20MG tablet PO SCH ×2 (07:52→19:41)
[2018-02-01] MEDS: carbamide peroxide 15ml bottle EACH EAR SCH ×2 (07:52→20:00)
[2018-02-01] MEDS: sodium chloride 1gm tablet PO SCH ×2 (07:52→19:42)
[2018-02-01] MEDS: metolazone 2.5mg tablet PO SCH (07:53)
[2018-02-01] MEDS: ascorbic acid 500mg tablet PO SCH ×2 (07:53→19:42)
[2018-02-01 11:30] LABS: PRE OP PARTIAL THROMB. TIME 28 SECONDS (22-35); PROTHROMBIN TIME 10.8 SECONDS (9.0-12.0)
[2018-02-01] MEDS: NUT.TX.GLUC.INTOLER,LAC-FR,REG (BOOST GLUCOSE CONTROL) 237 ML PO SCH ×2 (11:40→18:00)
[2018-02-01] MEDS ORDERED: ceFAZolin 1GM/D5W- ADD-VANTAGE 50 ML IV ONE (15:00)
[2018-02-01] MEDS ORDERED: ringers solution, lacted 1,000 ML IV SCH (17:09)
[2018-02-01] MEDS ORDERED: meperidine/PF 25mg/ml syringe IV PRN ×2 (17:10)
[2018-02-01] MEDS ORDERED: morphine 4 MG/ML inj SYRINge IV PRN ×2 (17:10)
[2018-02-01] MEDS ORDERED: proCHLORperazine 10 MG/2 ml inj IV PRN (17:10)
[2018-02-01] MEDS ORDERED: ondansetron/PF 4mg/2ml inj IV PRN (17:10)
[2018-02-01] MEDS ORDERED: fentaNYL/PF 50MCG/1 ML 2ML syringe ONE (17:55)
[2018-02-01] MEDS ORDERED: midazolam 2 mg/2 ml injection ONE (17:56)
[2018-02-01] MEDS ORDERED: propofol inj 20 ML IV ONE (18:42)
[2018-02-01] MEDS ORDERED: meperidine/PF 25mg/ml syringe ONE (19:05)
[2018-02-01] MEDS: meperidine/PF 25mg/ml syringe IV PRN ×2 (19:05→19:13)
[2018-02-01] MEDS: sennosides 8.6mg tablet PO SCH (21:00)
[2018-02-01] MEDS: insulin glargine (Lantus) pen - multi-dose SQ SCH (21:00)
[2018-02-01] MEDS: atorvastatin 20mg tablet PO SCH (21:00)
[2018-02-02 02:00] VITALS: BP 129/63
[2018-02-02] MEDS: oxyCODONE IR 5mg (immed. release) tablet PO PRN ×6 (02:40→23:45)
[2018-02-02 07:09] VITALS: BP 123/66
[2018-02-02] MEDS: carbamide peroxide 15ml bottle EACH EAR SCH ×2 (07:35→23:44)
[2018-02-02] MEDS: lactobacillus rhamnosus 10,000 MMU CELLS/CAPSULE PO SCH ×2 (07:35→19:42)
[2018-02-02] MEDS: furosemide 20MG tablet PO SCH ×2 (07:35→19:42)
[2018-02-02] MEDS: metolazone 2.5mg tablet PO SCH (07:35)
[2018-02-02] MEDS: gabapentin 300mg capsule PO SCH ×3 (07:35→19:42)
[2018-02-02] MEDS: multivitamins, therapeutics tablet PO SCH (07:35)
[2018-02-02] MEDS: sodium chloride 1gm tablet PO SCH ×2 (07:35→19:42)
[2018-02-02] MEDS: duloxetine 30mg CAPSULE.DR PO SCH (07:35)
[2018-02-02] MEDS: lisinopril 20mg tablet PO SCH (07:35)
[2018-02-02] MEDS: metoprolol tartrate 25mg tablet PO SCH ×2 (07:35→19:41)
[2018-02-02] MEDS: ascorbic acid 500mg tablet PO SCH ×2 (07:35→19:41)
[2018-02-02] MEDS: levoTHYROXINE 100mcg tablet PO SCH (07:35)
[2018-02-02] MEDS: NUT.TX.GLUC.INTOLER,LAC-FR,REG (BOOST GLUCOSE CONTROL) 237 ML PO SCH ×3 (07:52→18:00)
[2018-02-02] MEDS: atorvastatin 20mg tablet PO SCH (19:41)
[2018-02-02] MEDS: sennosides 8.6mg tablet PO SCH (19:42)
[2018-02-02] MEDS: insulin glargine (Lantus) pen - multi-dose SQ SCH (21:00)
[2018-02-02 22:00] VITALS: BP 110/52
[2018-02-03] MEDS: oxyCODONE IR 5mg (immed. release) tablet PO PRN ×4 (03:59→20:48)
[2018-02-03 06:00] VITALS: BP 106/60
[2018-02-03] MEDS: duloxetine 30mg CAPSULE.DR PO SCH (07:50)
[2018-02-03] MEDS: multivitamins, therapeutics tablet PO SCH (07:50)
[2018-02-03] MEDS: lactobacillus rhamnosus 10,000 MMU CELLS/CAPSULE PO SCH ×2 (07:51→20:48)
[2018-02-03] MEDS: levoTHYROXINE 100mcg tablet PO SCH (07:51)
[2018-02-03] MEDS: ascorbic acid 500mg tablet PO SCH ×2 (07:51→20:48)
[2018-02-03] MEDS: metoprolol tartrate 25mg tablet PO SCH ×2 (07:51→20:48)
[2018-02-03] MEDS: sodium chloride 1gm tablet PO SCH ×2 (07:51→20:48)
[2018-02-03] MEDS: furosemide 20MG tablet PO SCH ×2 (07:51→20:48)
[2018-02-03] MEDS: gabapentin 300mg capsule PO SCH ×3 (07:51→20:48)
[2018-02-03] MEDS: lisinopril 20mg tablet PO SCH (07:52)
[2018-02-03] MEDS: carbamide peroxide 15ml bottle EACH EAR SCH ×2 (07:59→20:49)
[2018-02-03] MEDS: NUT.TX.GLUC.INTOLER,LAC-FR,REG (BOOST GLUCOSE CONTROL) 237 ML PO SCH ×3 (07:59→20:49)
[2018-02-03] MEDS: metolazone 2.5mg tablet PO SCH (07:59)
[2018-02-03 08:11] LABS: BASOPHILS % (AUTO) 0.3 % (0-1); EOSINOPHILS # (AUTO) 0.3 X10'3 (0-0.9); EOSINOPHILS % (AUTO) 3.9 % (0-6); HEMOGLOBIN 8.4 g/dl (14.0-17.9); LYMPHOCYTES # (AUTO) 2.3 X10'3 (1.1-4.8); LYMPHOCYTES % (AUTO) 25.8 % (21-51); MEAN CORPUSCULAR HEMOGLOBIN 28.5 PG (27.0-31.0); MEAN CORPUSCULAR HGB CONC 33.6 % (33.0-36.5); MEAN CORPUSCULAR VOLUME 84.9 FL (78-98); MEAN PLATELET VOLUME 6.4 FL (7.4-10.4); MONOCYTES % (AUTO) 11.7 % (2-12); NEUTROPHILS # (AUTO) 5.1 X10'3 (1.8-7.7); NEUTROPHILS % (AUTO) 58.3 % (42-75); PLATELET COUNT 338 X10'3 (140-440); RED BLOOD COUNT 2.94 X10'6 (4.70-6.10); WHITE BLOOD COUNT 8.7 X10'3 (4.5-11.0)
[2018-02-03 08:32] LABS: ALANINE AMINOTRANSFERASE 29 U/L (12-78); ALBUMIN 2.8 G/DL (3.4-5.0); ALBUMIN/GLOBULIN RATIO 0.6 (1.1-1.5); ALKALINE PHOSPHATASE 85 IU/L (46-116); ANION GAP 7 (8-16); ASPARTATE AMINO TRANSFERASE 25 U/L (10-37); BILIRUBIN,TOTAL 0.3 MG/DL (0.1-1.0); BLOOD UREA NITROGEN 24 MG/DL (7-18); CALCIUM 8.6 MG/DL (8.5-10.1); CHLORIDE 100 MMOL/L (99-107); CREATININE 1.09 MG/DL (0.60-1.10); GLUCOSE 105 MG/DL (70-104); SODIUM 136 MMOL/L (135-145); TOTAL CARBON DIOXIDE 28.8 MMOL/L (24-32); TOTAL PROTEIN 7.4 G/DL (6.4-8.2); eGFR 67 ML/MIN
[2018-02-03 10:00] VITALS: BP 114/53
[2018-02-03 18:00] VITALS: BP 118/59
[2018-02-03] MEDS: sennosides 8.6mg tablet PO SCH (20:48)
[2018-02-03] MEDS: atorvastatin 20mg tablet PO SCH (20:48)
[2018-02-03] MEDS: insulin glargine (Lantus) pen - multi-dose SQ SCH (21:00)
[2018-02-04 05:00] VITALS: BP 106/56
[2018-02-04] MEDS: oxyCODONE IR 5mg (immed. release) tablet PO PRN ×2 (05:30→19:50)
[2018-02-04] MEDS: NUT.TX.GLUC.INTOLER,LAC-FR,REG (BOOST GLUCOSE CONTROL) 237 ML PO SCH ×3 (08:09→19:53)
[2018-02-04] MEDS: furosemide 20MG tablet PO SCH ×2 (08:09→19:50)
[2018-02-04] MEDS: gabapentin 300mg capsule PO SCH ×3 (08:09→19:52)
[2018-02-04] MEDS: multivitamins, therapeutics tablet PO SCH (08:09)
[2018-02-04] MEDS: lactobacillus rhamnosus 10,000 MMU CELLS/CAPSULE PO SCH ×2 (08:09→19:49)
[2018-02-04] MEDS: lisinopril 20mg tablet PO SCH (08:10)
[2018-02-04] MEDS: metoprolol tartrate 25mg tablet PO SCH ×2 (08:10→19:50)
[2018-02-04] MEDS: duloxetine 30mg CAPSULE.DR PO SCH (08:10)
[2018-02-04] MEDS: levoTHYROXINE 100mcg tablet PO SCH (08:11)
[2018-02-04] MEDS: sodium chloride 1gm tablet PO SCH ×2 (08:11→19:50)
[2018-02-04] MEDS: ascorbic acid 500mg tablet PO SCH ×2 (08:11→19:50)
[2018-02-04] MEDS: metolazone 2.5mg tablet PO SCH (08:11)
[2018-02-04] MEDS: carbamide peroxide 15ml bottle EACH EAR SCH ×2 (08:16→19:52)
[2018-02-04 10:00] VITALS: BP 123/55
[2018-02-04 18:00] VITALS: BP 132/66
[2018-02-04] MEDS: atorvastatin 20mg tablet PO SCH (19:52)
[2018-02-04] MEDS: sennosides 8.6mg tablet PO SCH (19:53)
[2018-02-04] MEDS: insulin glargine (Lantus) pen - multi-dose SQ SCH (21:00)
[2018-02-04 22:00] VITALS: BP 127/63
[2018-02-05] MEDS: oxyCODONE IR 5mg (immed. release) tablet PO PRN ×4 (04:42→19:20)
[2018-02-05 06:00] VITALS: BP 102/45
[2018-02-05] MEDS: furosemide 20MG tablet PO SCH ×2 (07:47→19:20)
[2018-02-05] MEDS: lactobacillus rhamnosus 10,000 MMU CELLS/CAPSULE PO SCH ×2 (07:47→19:19)
[2018-02-05] MEDS: sodium chloride 1gm tablet PO SCH ×2 (07:48→19:19)
[2018-02-05] MEDS: levoTHYROXINE 100mcg tablet PO SCH (07:48)
[2018-02-05] MEDS: multivitamins, therapeutics tablet PO SCH (07:48)
[2018-02-05] MEDS: ascorbic acid 500mg tablet PO SCH ×2 (07:48→19:19)
[2018-02-05] MEDS: lisinopril 20mg tablet PO SCH (07:48)
[2018-02-05] MEDS: gabapentin 300mg capsule PO SCH ×3 (07:48→21:13)
[2018-02-05] MEDS: metoprolol tartrate 25mg tablet PO SCH ×2 (07:48→19:20)
[2018-02-05] MEDS: duloxetine 30mg CAPSULE.DR PO SCH (07:48)
[2018-02-05] MEDS: metolazone 2.5mg tablet PO SCH (07:48)
[2018-02-05] MEDS: NUT.TX.GLUC.INTOLER,LAC-FR,REG (BOOST GLUCOSE CONTROL) 237 ML PO SCH ×3 (08:39→18:31)
[2018-02-05] MEDS: carbamide peroxide 15ml bottle EACH EAR SCH ×2 (08:44→20:00)
[2018-02-05 10:00] VITALS: BP 121/61
[2018-02-05 18:00] VITALS: BP 122/60
[2018-02-05 20:36] LABS: ALBUMIN 2.6 G/DL (3.4-5.0); ANION GAP 5 (8-16); BLOOD UREA NITROGEN 28 MG/DL (7-18); BUN/CREATININE RATIO 24.8 (5.4-32.0); CALCIUM 8.7 MG/DL (8.5-10.1); CHLORIDE 99 MMOL/L (99-107); CREATININE 1.13 MG/DL (0.60-1.10); GLUCOSE 180 MG/DL (70-104); POTASSIUM 3.9 MMOL/L (3.5-5.1); SODIUM 133 MMOL/L (135-145); TOTAL CARBON DIOXIDE 28.8 MMOL/L (24-32); eGFR 65 ML/MIN
[2018-02-05] MEDS: sennosides 8.6mg tablet PO SCH (21:00)
[2018-02-05] MEDS: insulin glargine (Lantus) pen - multi-dose SQ SCH (21:00)
[2018-02-05] MEDS: atorvastatin 20mg tablet PO SCH (21:13)
[2018-02-05 22:00] VITALS: BP 118/62
[2018-02-06] MEDS: oxyCODONE IR 5mg (immed. release) tablet PO PRN ×4 (05:51→20:21)
[2018-02-06 06:47] VITALS: BP 126/71
[2018-02-06] MEDS: carbamide peroxide 15ml bottle EACH EAR SCH ×2 (08:00→20:00)
[2018-02-06] MEDS: metolazone 2.5mg tablet PO SCH (08:19)
[2018-02-06] MEDS: lisinopril 20mg tablet PO SCH (08:21)
[2018-02-06] MEDS: gabapentin 300mg capsule PO SCH ×3 (08:22→20:21)
[2018-02-06] MEDS: levoTHYROXINE 100mcg tablet PO SCH (08:22)
[2018-02-06] MEDS: ascorbic acid 500mg tablet PO SCH ×2 (08:22→20:21)
[2018-02-06] MEDS: sodium chloride 1gm tablet PO SCH ×2 (08:22→20:21)
[2018-02-06] MEDS: metoprolol tartrate 25mg tablet PO SCH ×2 (08:22→20:21)
[2018-02-06] MEDS: duloxetine 30mg CAPSULE.DR PO SCH (08:22)
[2018-02-06] MEDS: lactobacillus rhamnosus 10,000 MMU CELLS/CAPSULE PO SCH ×2 (08:22→20:21)
[2018-02-06] MEDS: furosemide 20MG tablet PO SCH ×2 (08:23→20:21)
[2018-02-06] MEDS: multivitamins, therapeutics tablet PO SCH (08:23)
[2018-02-06] MEDS: NUT.TX.GLUC.INTOLER,LAC-FR,REG (BOOST GLUCOSE CONTROL) 237 ML PO SCH ×3 (08:23→18:00)
[2018-02-06 10:00] VITALS: BP 148/67
[2018-02-06 19:12] VITALS: BP 109/61
[2018-02-06] MEDS: atorvastatin 20mg tablet PO SCH (20:21)
[2018-02-06] MEDS: sennosides 8.6mg tablet PO SCH (20:21)
[2018-02-06] MEDS: insulin glargine (Lantus) pen - multi-dose SQ SCH (20:22)
[2018-02-06] MEDS ORDERED: cyclobenzaprine 10mg tablet PO ONE (20:55)
[2018-02-06 22:00] VITALS: BP 115/58
[2018-02-07] MEDS: oxyCODONE IR 5mg (immed. release) tablet PO PRN ×4 (06:08→21:34)
[2018-02-07 07:18] VITALS: BP 116/56
[2018-02-07] MEDS: metoprolol tartrate 25mg tablet PO SCH ×2 (08:08→19:57)
[2018-02-07] MEDS: duloxetine 30mg CAPSULE.DR PO SCH (08:08)
[2018-02-07] MEDS: furosemide 20MG tablet PO SCH ×2 (08:09→19:57)
[2018-02-07] MEDS: multivitamins, therapeutics tablet PO SCH (08:09)
[2018-02-07] MEDS: lisinopril 20mg tablet PO SCH (08:09)
[2018-02-07] MEDS: metolazone 2.5mg tablet PO SCH (08:09)
[2018-02-07] MEDS: lactobacillus rhamnosus 10,000 MMU CELLS/CAPSULE PO SCH ×2 (08:09→19:57)
[2018-02-07] MEDS: sodium chloride 1gm tablet PO SCH ×2 (08:09→19:58)
[2018-02-07] MEDS: ascorbic acid 500mg tablet PO SCH ×2 (08:09→19:58)
[2018-02-07] MEDS: levoTHYROXINE 100mcg tablet PO SCH (08:09)
[2018-02-07] MEDS: gabapentin 300mg capsule PO SCH ×3 (08:09→19:58)
[2018-02-07] MEDS: NUT.TX.GLUC.INTOLER,LAC-FR,REG (BOOST GLUCOSE CONTROL) 237 ML PO SCH ×3 (08:13→18:00)
[2018-02-07] MEDS: carbamide peroxide 15ml bottle EACH EAR SCH ×2 (08:14→20:00)
[2018-02-07 10:00] VITALS: BP 113/53
[2018-02-07 18:00] VITALS: BP 123/65
[2018-02-07] MEDS: atorvastatin 20mg tablet PO SCH (19:58)
[2018-02-07] MEDS: insulin glargine (Lantus) pen - multi-dose SQ SCH (21:00)
[2018-02-07] MEDS: sennosides 8.6mg tablet PO SCH (21:00)
[2018-02-07 22:00] VITALS: BP 117/57
[2018-02-08] MEDS: oxyCODONE IR 5mg (immed. release) tablet PO PRN ×6 (01:30→23:06)
[2018-02-08 05:00] VITALS: BP 112/58
[2018-02-08 07:41] VITALS: BP 107/67
[2018-02-08] MEDS: gabapentin 300mg capsule PO SCH ×3 (07:43→20:33)
[2018-02-08] MEDS: metoprolol tartrate 25mg tablet PO SCH ×2 (07:43→20:33)
[2018-02-08] MEDS: lactobacillus rhamnosus 10,000 MMU CELLS/CAPSULE PO SCH ×2 (07:43→20:32)
[2018-02-08] MEDS: duloxetine 30mg CAPSULE.DR PO SCH (07:43)
[2018-02-08] MEDS: furosemide 20MG tablet PO SCH ×2 (07:43→20:33)
[2018-02-08] MEDS: levoTHYROXINE 100mcg tablet PO SCH (07:44)
[2018-02-08] MEDS: multivitamins, therapeutics tablet PO SCH (07:44)
[2018-02-08] MEDS: metolazone 2.5mg tablet PO SCH (07:44)
[2018-02-08] MEDS: sodium chloride 1gm tablet PO SCH ×2 (07:44→20:33)
[2018-02-08] MEDS: ascorbic acid 500mg tablet PO SCH ×2 (07:44→20:33)
[2018-02-08] MEDS: lisinopril 20mg tablet PO SCH (07:45)
[2018-02-08] MEDS: NUT.TX.GLUC.INTOLER,LAC-FR,REG (BOOST GLUCOSE CONTROL) 237 ML PO SCH ×3 (08:00→18:54)
[2018-02-08] MEDS: carbamide peroxide 15ml bottle EACH EAR SCH ×2 (08:00→20:00)
[2018-02-08 10:00] VITALS: BP 93/50
[2018-02-08 18:00] VITALS: BP 136/69
[2018-02-08] MEDS: atorvastatin 20mg tablet PO SCH (20:33)
[2018-02-08] MEDS: sennosides 8.6mg tablet PO SCH (20:34)
[2018-02-08] MEDS: insulin glargine (Lantus) pen - multi-dose SQ SCH (20:35)
[2018-02-08 22:00] VITALS: BP 106/58
[2018-02-09] MEDS: oxyCODONE IR 5mg (immed. release) tablet PO PRN ×4 (04:31→19:08)
[2018-02-09 05:00] VITALS: BP 119/66
[2018-02-09] MEDS: carbamide peroxide 15ml bottle EACH EAR SCH ×2 (07:11→20:00)
[2018-02-09] MEDS: lisinopril 20mg tablet PO SCH (08:00)
[2018-02-09] MEDS: metoprolol tartrate 25mg tablet PO SCH ×2 (08:00→20:41)
[2018-02-09 08:29] VITALS: BP 103/70
[2018-02-09] MEDS: lactobacillus rhamnosus 10,000 MMU CELLS/CAPSULE PO SCH ×2 (08:31→20:41)
[2018-02-09] MEDS: sodium chloride 1gm tablet PO SCH ×2 (08:31→20:41)
[2018-02-09] MEDS: gabapentin 300mg capsule PO SCH ×3 (08:31→20:41)
[2018-02-09] MEDS: NUT.TX.GLUC.INTOLER,LAC-FR,REG (BOOST GLUCOSE CONTROL) 237 ML PO SCH ×3 (08:31→18:00)
[2018-02-09] MEDS: furosemide 20MG tablet PO SCH ×2 (08:31→20:40)
[2018-02-09] MEDS: duloxetine 30mg CAPSULE.DR PO SCH (08:31)
[2018-02-09] MEDS: multivitamins, therapeutics tablet PO SCH (08:32)
[2018-02-09] MEDS: ascorbic acid 500mg tablet PO SCH ×2 (08:32→20:41)
[2018-02-09] MEDS: levoTHYROXINE 100mcg tablet PO SCH (08:32)
[2018-02-09] MEDS: metolazone 2.5mg tablet PO SCH (08:32)
[2018-02-09 10:00] VITALS: BP 94/46
[2018-02-09 18:00] VITALS: BP 118/71
[2018-02-09] MEDS: atorvastatin 20mg tablet PO SCH (20:41)
[2018-02-09] MEDS: sennosides 8.6mg tablet PO SCH (20:41)
[2018-02-09] MEDS: insulin glargine (Lantus) pen - multi-dose SQ SCH (20:46)
[2018-02-09 22:00] VITALS: BP 122/67
[2018-02-10] MEDS: oxyCODONE IR 5mg (immed. release) tablet PO PRN ×5 (01:03→20:22)
[2018-02-10 05:00] VITALS: BP 97/51
[2018-02-10] MEDS: carbamide peroxide 15ml bottle EACH EAR SCH ×2 (08:00→20:00)
[2018-02-10] MEDS: lisinopril 20mg tablet PO SCH (08:00)
[2018-02-10] MEDS: metoprolol tartrate 25mg tablet PO SCH ×2 (08:00→20:22)
[2018-02-10] MEDS: furosemide 20MG tablet PO SCH ×2 (08:00→20:21)
[2018-02-10] MEDS: NUT.TX.GLUC.INTOLER,LAC-FR,REG (BOOST GLUCOSE CONTROL) 237 ML PO SCH ×3 (08:04→18:00)
[2018-02-10 08:19] VITALS: BP 100/52
[2018-02-10] MEDS: duloxetine 30mg CAPSULE.DR PO SCH (08:20)
[2018-02-10] MEDS: ascorbic acid 500mg tablet PO SCH ×2 (08:20→20:22)
[2018-02-10] MEDS: multivitamins, therapeutics tablet PO SCH (08:20)
[2018-02-10] MEDS: gabapentin 300mg capsule PO SCH ×3 (08:20→20:22)
[2018-02-10] MEDS: metolazone 2.5mg tablet PO SCH (08:20)
[2018-02-10] MEDS: sodium chloride 1gm tablet PO SCH ×2 (08:20→20:22)
[2018-02-10] MEDS: levoTHYROXINE 100mcg tablet PO SCH (08:20)
[2018-02-10] MEDS: lactobacillus rhamnosus 10,000 MMU CELLS/CAPSULE PO SCH ×2 (08:20→20:21)
[2018-02-10 10:00] VITALS: BP 108/52
[2018-02-10 18:00] VITALS: BP 127/45
[2018-02-10] MEDS: atorvastatin 20mg tablet PO SCH (20:22)
[2018-02-10] MEDS: insulin glargine (Lantus) pen - multi-dose SQ SCH (20:26)
[2018-02-10] MEDS: sennosides 8.6mg tablet PO SCH (20:26)
[2018-02-10 22:00] VITALS: BP 123/66
[2018-02-11] MEDS: oxyCODONE IR 5mg (immed. release) tablet PO PRN ×4 (00:28→13:12)
[2018-02-11 06:00] VITALS: BP 98/53
[2018-02-11] MEDS: NUT.TX.GLUC.INTOLER,LAC-FR,REG (BOOST GLUCOSE CONTROL) 237 ML PO SCH ×2 (09:09→13:13)
[2018-02-11] MEDS: gabapentin 300mg capsule PO SCH ×2 (09:09→13:13)
[2018-02-11] MEDS: lisinopril 20mg tablet PO SCH (09:09)
[2018-02-11] MEDS: furosemide 20MG tablet PO SCH (09:09)
[2018-02-11] MEDS: duloxetine 30mg CAPSULE.DR PO SCH (09:09)
[2018-02-11] MEDS: metoprolol tartrate 25mg tablet PO SCH (09:09)
[2018-02-11] MEDS: lactobacillus rhamnosus 10,000 MMU CELLS/CAPSULE PO SCH (09:09)
[2018-02-11] MEDS: sodium chloride 1gm tablet PO SCH (09:10)
[2018-02-11] MEDS: levoTHYROXINE 100mcg tablet PO SCH (09:10)
[2018-02-11] MEDS: metolazone 2.5mg tablet PO SCH (09:10)
[2018-02-11] MEDS: multivitamins, therapeutics tablet PO SCH (09:11)
[2018-02-11] MEDS: ascorbic acid 500mg tablet PO SCH (09:12)
[2018-02-11] MEDS: carbamide peroxide 15ml bottle EACH EAR SCH (09:19)
[2018-02-11 10:00] VITALS: BP 121/60
== END 2018-02-11 14:00 | DRG 464 ==
LOC: PAS 08:02 → PAS IN 08:04 → EDSTATUS 09:45 → ORTHO 4S 11:20 → UNDODISIN 02-08 10:30
PROVIDERS: ADMIT Orthopaedic Surgery; ATTEND Orthopaedic Surgery
PROC: 0QBG0ZZ Excision of Right Tibia, Open Approach (ICD-10-PCS; principal; 2018-01-27 08:41)
PROC: 0JBN0ZZ Excision of Right Lower Leg Subcutaneous Tissue and Fascia, Open Approach (ICD-10-PCS; 2018-02-01)
PROC: 0JQN0ZZ Repair Right Lower Leg Subcutaneous Tissue and Fascia, Open Approach (ICD-10-PCS; 2018-02-01)
DX: T87.81 Dehiscence of amputation stump (principal); D62 Acute posthemorrhagic anemia; E03.9 Hypothyroidism, unspecified; E11.22 Type 2 diabetes mellitus with diabetic chronic kidney disease; E66.9 Obesity, unspecified; E11.42 Type 2 diabetes mellitus with diabetic polyneuropathy; I12.9 Hypertensive chronic kidney disease with stage 1 through stage 4 chronic kidney disease, or unspecified chronic kidney disease; N18.9 Chronic kidney disease, unspecified; H61.23 Impacted cerumen, bilateral; E78.5 Hyperlipidemia, unspecified; G54.6 Phantom limb syndrome with pain; F32.9 Major depressive disorder, single episode, unspecified; Y83.5 Amputation of limb(s) as the cause of abnormal reaction of the patient, or of later complication, without mention of misadventure at the time of the procedure; Z79.899 Other long term (current) drug therapy; Y92.89 Other specified places as the place of occurrence of the external cause; Z68.35 Body mass index [BMI] 35.0-35.9, adult
CPT/HCPCS: 36415; 80047; 80048; 80051; 80053; 82948; 84443; 85025; 85610; 85730; 86885; 86900; 86901; 87070; 97110; 97116; 97161; 97530; A4353; A4649; A6257; A6258; A6446; A6449; A7000; J0690; J1170; J1815; J2001; J2175; J2250; J2405; J2704; J3010; J3370; J7030; J7120; P9045

== ENCOUNTER 2018-03-02 18:52 | Emergency (ER) | payer MEDICARE, OTHER ==
[~2018-03-02] VITALS: Ht 177.8 cm; Wt 96.4 kg
[~2018-03-02 18:52] MED LIST changes: -Cefazolin 2GM/50ML dext iso,osmotic IVPB IV ONE; -DOCUMENT DATE & TIME OF BETA-BLOCKER PO ONE; -famotidine 20mg tablet PO ONE; -metoprolol tartrate 25mg tablet PO STA; -ringers solution, lacted 1,000 ML IV SCH; -vancomycin inj 1,500 MG in normal saline 300ml IV soln IV ONE
[2018-03-02] MEDS ORDERED: morphine 4 MG/ML inj SYRINge IM ONE ×2 (19:35→22:25)
[2018-03-02] MEDS ORDERED: LIDOcaine 1% 30ml preserv. free vial IJ ONE (20:55)
[2018-03-02] MEDS ORDERED: HYDROcodone/acetaminophen 10/325mg tab PO ONE (21:35)
[2018-03-02] MEDS ORDERED: PER10325T PO (22:00)
[2018-03-02 22:51] VITALS: BP 137/77
== END 2018-03-02 23:09 ==
LOC: ER 18:52
DX: S22.068A Other fracture of T7-T8 thoracic vertebra, initial encounter for closed fracture (principal); T87.81 Dehiscence of amputation stump; E11.9 Type 2 diabetes mellitus without complications; Z98.890 Other specified postprocedural states; Z79.4 Long term (current) use of insulin; Z79.899 Other long term (current) drug therapy; W18.39XA Other fall on same level, initial encounter; Y93.89 Activity, other specified; Y92.89 Other specified places as the place of occurrence of the external cause; Y99.8 Other external cause status
CPT/HCPCS: 12020; 72128; 72131; 96372; 99284; A6255; A6449; J2270; J3490; 12004